=== PATIENT | male | born 1995 | race Caucasian/White ===

== ENCOUNTER 2024-06-02 21:16 | Emergency (ER) | payer OTHER, BC, SELFPAY ==
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
[2024-06-02 21:26] VITALS: BP 150/85; PULSE 99; O2SAT 99; BMI 29.4
[2024-06-02 21:34] VITALS: BP 149/98; PULSE 79; RESP 17; TEMP 36.7; O2SAT 97
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
[2024-06-02] MEDS: Acetaminophen 325 MG TABLET 975 MG PO (22:36)
[2024-06-02 22:52] LABS: Ethanol < 10 mg/dL
[2024-06-03 00:51] LABS: Amphetamine Screen Urine Not Detected (Not Detect); Barbiturates, Urine Not Detected (Not Detect); Benzodiazepines Screen Urine Not Detected (Not Detect); Buprenorphine Scr Not Detected (Not Detect); Cannabinoid Screen Urine Not Detected (Not Detect); Cocaine Screen Urine Not Detected (Not Detect); Fentanyl, urine Not Detected (Not Detect); Methadone Screen, Urine Not Detected (Not Detect); Opiate Screen Urine Not Detected (Not Detect); Oxycodone Screen Urine Not Detected (Not Detect); Phencyclidine Screen Urine Not Detected (Not Detect)
[2024-06-03 01:09] VITALS: BP 127/85; PULSE 79; RESP 18; TEMP 36.3
[2024-06-03 01:10] VITALS: BP 127/85; PULSE 79; RESP 18; TEMP 36.3
== END 2024-06-03 01:10 | disposition home or self-care (01) ==
PROVIDERS: Nurse Practitioner Family; Emergency Provider Emergency Medicine; PCP Internal Medicine
DX: S16.1XXA Strain of muscle, fascia and tendon at neck level, initial encounter (principal); V43.52XA Car driver injured in collision with other type car in traffic accident, initial encounter; Y93.89 Activity, other specified; Y92.410 Unspecified street and highway as the place of occurrence of the external cause; Y99.0 Civilian activity done for income or pay
CPT/HCPCS: 36415; 70450; 72125; 80307; 99284